=== PATIENT | female | born 1980 | race Caucasian/White ===

== ENCOUNTER 2022-04-30 11:58 | Emergency (ER) | payer OTHER, SELFPAY ==
--- OUTSIDE RECORDS SUMMARY | 2022-04-30 12:02 | XMS REPORT | Continuity of Care Document ---
:1980 Author Organization [facility] t Address [address] [place] [address] Care Team Providers Name Role Phone DEXTER OWENS Attending Clinician Unavailable Problems This patient has no known problems. Allergies, Adverse Reactions, Alerts This patient has no known allergies or adverse reactions. Medications This patient has no known medications. Procedures This patient has no known procedures. Encounters Start End Encounter Admission Attending Care Care Encounter Source Date/Time Date/Time Type Type Clinicians Facility Department ID 2022-04-22 2022-04-22 Emergency E RAJ OWENS [facility] [id number] [facility] 18:48:00 22:54:00 BRITTNEY Results This patient has no known results.
[2022-04-30] MEDS ORDERED: TETANUS & DIPHTHERIA TOX,ADULT 0.5 ML VIAL ONE (12:36)
--- NOTE | 2022-04-30 13:28 | RAD REPORT ---
EXAM DESCRIPTION: RAD - Forearm Left - 04/30/2022 12:41 pm CLINICAL HISTORY: PAINfollowing fall COMPARISON: None. FINDINGS: No fracture is identified. There is no dislocation or periosteal reaction noted. No foreign body or other soft tissue abnormality. IMPRESSION: Negative left forearm examination.
--- NOTE | 2022-04-30 13:29 | RAD REPORT ---
EXAM DESCRIPTION: RAD - Hand Left 3 View - 04/30/2022 12:41 pm CLINICAL HISTORY: PAINfollowing fall COMPARISON: None. FINDINGS: No fracture, dislocation or periosteal reaction noted. No foreign body or other soft tissu e abnormality. IMPRESSION: Negative left hand examination. Scaphoid bone assessment is limited. Repeat imaging in 5 days could be performed if patient has persi stent symptoms concerning for fracture.
--- NOTE | 2022-04-30 13:30 | RAD REPORT ---
EXAM DESCRIPTION: RAD - Knee Right 3 View - 04/30/2022 12:41 pm CLINICAL HISTORY: PAINafter falling COMPARISON: No comparisonsNone. FINDINGS: No fracture, dislocation or periosteal reaction.No joint effusion seen. No joint space elsy rowing. No foreign body or other soft tissue abnormality. IMPRESSION: Negative right knee. Clinical concerns for internal derangement or occult bony injury could be further assessed with MR im aging.
--- NOTE | 2022-04-30 13:30 | RAD REPORT ---
EXAM DESCRIPTION: RAD - Ankle Right 3 View - 04/30/2022 12:41 pm CLINICAL HISTORY: PAIN COMPARISON: No comparisons FINDINGS: No fracture, dislocation or periosteal reaction. No joint effusion seen. No joint space na rrowing. Small plantar spur is present. No soft tissue abnormality. IMPRESSION: Negative right ankle for acute bone or joint finding.
--- NOTE | 2022-04-30 13:44 | ER ---
Nurse's Notes [facility] Name: Alivia Simmons Age: 42 yrs Sex: Female : 1980 Arrival Date: 04/30/2022 Time: 12:02 Bed DIS15 Private MD: Diagnosis: Pain in right knee;Pain in right ankle and joints of right foot;Other specified sprain of left wrist;Unspecified injury of head, initial encounter;Fall (on) (from) other stairs and steps Presentation: 04/30 12:13 Chief complaint: Patient states: "[place] left jd3 wrist and hit my head and my left knee.". Coronavirus screen: At this time, the client does not indicate any symptoms associated with coronavirus-19. Ebola Screen: No symptoms or risks identified at this time. Initial Sepsis Screen: Does the patient meet any 2 criteria? No. Patient's initial sepsis screen is negative. Does the patient have a suspected source of infection? No. Patient's initial sepsis screen is negative. Risk Assessment: Do you want to hurt yourself or someone else? Patient reports no desire to harm self or others. Onset of symptoms was April 30, 2022. 12:13 Method Of Arrival: Ambulatory jd3 12:13 Acuity: AXEL 3 jd3 Triage Assessment: 14:00 General: Appears in no apparent distress. Behavior is calm. 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 - Social history:: Smoking status: Patient denies any tobacco usage or history of. Screenin:00 Abuse screen: Denies threats or abuse. Denies injuries from another. Nutritional iw screening: No deficits noted. Tuberculosis screening: No symptoms or risk factors identified. Fall Risk None identified. Assessment: 13:00 General: Appears in no apparent distress. Behavior is calm, cooperative. Pain: iw Complains of pain in top of head and right arm and right elbow and right ankle. Neuro: Level of Consciousness is awake, alert, obeys commands, Oriented to person, place, time, situation, Moves all extremities. Full function. Cardiovascular: Patient's skin is warm and dry. Respiratory: Respiratory effort is even, unlabored, Respiratory pattern is regular. Derm: Skin is intact, is healthy with good turgor. Vital Signs: 12:16 BP 138 / 104; Pulse 103; Resp 18 S; Temp 98.5(TE); Pulse Ox 98% on R/A; Weight 93.44 kg jd3 (R); Height 5 ft. 5 in. (165.10 cm) (R); Pain 8/10; 12:16 Body Mass Index 34.28 (93.44 kg, 165.10 cm) jd3 ED Course: 12:02 Patient arrived in ED. jj6 12:10 [facility]C [facility]. kb 12:10 Harshil Swenson MD is Attending Physician. kb 12:14 Triage completed. jd3 12:17 Arm band placed on. jd3 12:43 Knee Right 3 View XRAY In Process Unspecified. EDMS 12:43 Ankle Right 3 View XRAY In Process Unspecified. EDMS 12:43 Forearm Left XRAY In Process Unspecified. EDMS 12:43 Hand Left 3 View XRAY In Process Unspecified. EDMS 13:00 Patient has correct armband on for positive identification. iw 13:45 Sofie Robb, RN is Primary Nurse. iw 13:53 Velcro wrist splint applied to left wrist. Thumb spica. em1 14:11 Head C Spine Mpr Wo Con In Process Unspecified. EDMS 14:24 No provider procedures requiring assistance completed. Patient did not have IV access iw during this emergency room visit. Administered Medications: 12:51 Drug: Tetanus-Diphtheria Toxoid Adult 0.5 ml {Merchandise Adjustment Clerk: takokat. Exp: jd3 01/29/2024. Lot #: [id number]. } Route: IM; Site: right deltoid; 13:15 Follow up: Response: No adverse reaction iw Medication: 13:00 VIS not applicable for this client. iw Outcome: 13:43 Discharge ordered by . kb 14:25 Discharged to home ambulatory. iw 14:25 Condition: good 14:25 Discharge instructions given to patient, Instructed on discharge instructions, follow up and referral plans. medication usage, Demonstrated understanding of instructions, follow-up care, medications, Prescriptions given X 1. 14:26 Patient left the ED. iw Signatures: Dispatcher [employer] EDJessica Boyle, SOCIAL WORKER AIDE-C SOCIAL WORKER AIDE-Sofie Awan, RN REYNALDO Recinos, Hector weber1 Db Baird RN RN jd3 Kala Taylor jj6
--- NOTE | 2022-04-30 13:44 | EDPHYS ---
Physician Documentation [facility] Name: Alivia Simmons Age: 42 yrs Sex: Female : 1980 Arrival Date: 04/30/2022 Time: 12:02 Bed DIS15 Private MD: ED Physician Harshil Swenson HPI: 04/30 12:40 This 42 yrs old Female presents to ER via Ambulatory with complaints of Fall Injury. kb 12:40 Details of fall: The patient fell from a height, unknown amount of stairs. Onset: The kb symptoms/episode began/occurred just prior to arrival. Associated injuries: The patient sustained injury to the head, abrasion, left wrist, decreased range of motion, painful injury, right ankle and right knee, painful injury. Severity of symptoms: At their worst the symptoms were moderate, in the emergency department the symptoms are unchanged. The patient has not experienced similar symptoms in the past. The patient has not recently seen a physician. Pt states her knee gave out causing her to fall down the stairs. Reports pain and decreased ROM to left wrist. Also has right knee and ankle pain. Reports she did hit her head, but denies loc. Acting appropriate in triage, denies headache/dizziness. 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 - Social history:: Smoking status: Patient denies any tobacco usage or history of. ROS: 12:38 Constitutional: Negative for fever, chills, and weight loss. kb 12:38 MS/extremity: Positive for pain, of the left wrist, right knee and anterior aspect of right ankle. 12:38 All other systems are negative. Exam: 12:38 Constitutional: This is a well developed, well nourished patient who is awake, alert, kb and in no acute distress. Head/Face: Normocephalic, atraumatic. ENT: Moist Mucous membranes Cardiovascular: Regular rate and rhythm with a normal S1 and S2. No gallops, murmurs, or rubs. No pulse deficits. Respiratory: Respirations even and unlabored. No increased work of breathing. Talking in full sentences Abdomen/GI: Soft, non-tender. No distention Neuro: Awake and alert, GCS 15, oriented to person, place, time, and situation. Moves all extremities. Normal gait. Psych: Awake, alert, with orientation to person, place and time. Behavior, mood, and affect are within normal limits. 12:38 Musculoskeletal/extremity: Extremities: grossly normal except: noted in the left wrist: decreased ROM, pain, tenderness, noted in the right ankle and right knee: pain, ROM: limited active range of motion due to pain, in the left wrist, Circulation is intact in all extremities. Sensation intact. 12:38 Skin: injury, abrasion(s), small abrasion noted, of the top of head and right elbow. Vital Signs: 12:16 BP 138 / 104; Pulse 103; Resp 18 S; Temp 98.5(TE); Pulse Ox 98% on R/A; Weight 93.44 kg jd3 (R); Height 5 ft. 5 in. (165.10 cm) (R); Pain 8/10; 12:16 Body Mass Index 34.28 (93.44 kg, 165.10 cm) jd3 MDM: 12:17 Patient medically screened. kb 12:38 Data reviewed: vital signs, nurses notes. Data interpreted: Pulse oximetry: on room air kb is 98 %. Interpretation: normal. 13:42 Counseling: I had a detailed discussion with the patient and/or guardian regarding: the kb historical points, exam findings, and any diagnostic results supporting the discharge/admit diagnosis, radiology results, the need for outpatient follow up, a orthopedic surgeon, to return to the emergency department if symptoms worsen or persist or if there are any questions or concerns that arise at home. 14:22 ED course: Upon discharge pt reported feeling dazed at times with vision changes if she kb was trying to focus on something far away. CT scan performed and normal. . 04/30 12:17 Order name: Knee Right 3 View XRAY; Complete Time: 13:37 kb 04/30 12:17 Order name: Ankle Right 3 View XRAY; Complete Time: 13:37 kb 04/30 12:17 Order name: Forearm Left XRAY; Complete Time: 13:29 kb 04/30 12:17 Order name: Hand Left 3 View XRAY; Complete Time: 13:30 kb 04/30 14:07 Order name: Head C Spine Mpr Wo Con; Complete Time: 14:22 EDMS 04/30 13:42 Order name: Thumb Spica Splint; Complete Time: 13:53 kb Administered Medications: 12:51 Drug: Tetanus-Diphtheria Toxoid Adult 0.5 ml {Varnish Inspector: [email or web address]. Exp: jd3 01/29/2024. Lot #: [id number]. } Route: IM; Site: right deltoid; 13:15 Follow up: Response: No adverse reaction iw Disposition: 15:22 Co-signature as Attending Physician, Harshil Swenson MD I agree with the assessment and kdr plan of care. Disposition Summary: 04/30/22 13:43 Discharge Ordered Location: Home kb Condition: Stable kb Diagnosis - Pain in right knee kb - Pain in right ankle and joints of right foot kb - Other specified sprain of left wrist kb - Unspecified injury of head, initial encounter kb - Fall (on) (from) other stairs and steps kb Followup: kb - With: Emergency Department - When: As needed - Reason: Worsening of condition Followup: kb - With: Private Physician - When: 2 - 3 days - Reason: Recheck today's complaints, Continuance of care, Re-evaluation by your physician Discharge Instructions: - Discharge Summary Sheet kb - Musculoskeletal Pain kb - Head Injury, Adult, [id number] kb Forms: - Medication Reconciliation Form kb - Thank You Letter kb - Antibiotic Education kb - Prescription Opioid Use kb Prescriptions: - Diclofenac Sodium 75 mg Oral tablet,delayed release (DR/EC) - take 1 tablet by ORAL route 2 times per day As needed; 30 tablet; Refills: 0, kb Product Selection Permitted Signatures: Dispatcher [employer] EDMS Jessica Ken, CEDRIC PERALTA-Harshil Rosa MD MD kdr Davies, Jonathon, RN RN Sofie Woodard RN iw Corrections: (The following items were deleted from the chart) 14:07 13:47 Head Brain Wo [email or web address] ordered. EDMS EDMS
--- NOTE | 2022-04-30 14:18 | RAD REPORT ---
EXAM DESCRIPTION: CT - [id number] - 04/30/2022 2:10 pm CLINICAL HISTORY: head injury COMPARISON: No comparisonsKnee Right 3 View dated 04/30/2022 TECHNIQUE: Axial 5 mm thick images of the head were obtained. Axial 2 mm thick images of the cervic al spine were obtained with sagittal and coronal reconstruction images generated and reviewed. All CT scans are performed using dose optimization technique as appropriate and may include automated exposure control or mA/KV adjustment according to patient size. FINDINGS: No intracranial hemorrhage, mass, edema or acute intracranial finding. No extra-axial flui d collections. Mastoid air cells and paranasal sinuses are clear. No globe or orbit abnormality seen. No skull fracture seen and no large scalp hematoma. Cervical body height and alignment are normal. No disk space narrowing. No fracture or acute bony abn ormality. Central canal detail is inherently limited. No paraspinal mass or hematoma. IMPRESSION: Negative CT head examination for acute or significant finding. Negative CT cervical spine examination for acute or significant finding.
[2022-04-30 14:47] VITALS: BP 138/104; TEMP 98.5; O2SAT 98
== END 2022-04-30 14:26 | disposition home or self-care (01) ==
LOC: ER 11:58
DX: S09.90XA Unspecified injury of head, initial encounter (principal); S63.592A Other specified sprain of left wrist, initial encounter; M25.561 Pain in right knee; M25.571 Pain in right ankle and joints of right foot; W10.9XXA Fall (on) (from) unspecified stairs and steps, initial encounter; E11.9 Type 2 diabetes mellitus without complications; Z23 Encounter for immunization; Z88.8 Allergy status to other drugs, medicaments and biological substances; Z91.040 Latex allergy status; Z91.048 Other nonmedicinal substance allergy status
CPT/HCPCS: 70450; 72125; 90471; 90714; 99284